=== PATIENT | female | born 1990 | race African-American/Black ===

== ENCOUNTER 2021-07-14 08:31 | Observation (INO) ==
[2021-07-14] MEDS ORDERED: BUTORPHANOL 2 MG/ML VIAL IV PRN (08:51)
[2021-07-14] MEDS ORDERED: ONDANSETRON 4 MG/2 ML VIAL IV PRN (08:51)
[2021-07-14] MEDS ORDERED: BENZOCAINE 20%/MENTHOL 0.5% SPRAY 56 GM CAN TOP PRN (08:53)
[2021-07-14] MEDS ORDERED: ACETAMINOPHEN 325 MG TABLET PO PRN (08:53)
[2021-07-14] MEDS ORDERED: RHO(D) IMMUNE GLOBULIN 300 MCG SYRINGE IM ONE ×2 (08:53→09:30)
[2021-07-14] MEDS ORDERED: OXYTOCIN/LR 20 UNIT/1,000 ML BAG IV PRN (08:53)
[2021-07-14] MEDS ORDERED: oxyCODONE/ACETAMINOPHEN 5-325 MG TABLET PO PRN (08:53)
[2021-07-14] MEDS ORDERED: BISACODYL 10 MG SUPP RECTAL PRN (08:53)
[2021-07-14 09:12] LABS: Bilirubin,Urine Negative (Negative); Blood, Urine Negative (Negative); Glucose,Urine (UA) Negative (Negative); Ketones,Urine 80 mg/dL (Negative); Mucus,Urine Moderate /LPF (Occasional); Nitrite,Urine Negative (Negative); Protein,Urine 30 MG/DL; RBC,Urine 1 /HPF (0-4); Squamous Epithelial Cell,Urine Occasional /HPF (0-10); Urine Appearance CLEAR (Clear); Urine Color Yellow (Yellow); Urine Urobilinogen < 2.0 EU/DL (<2.0)
[2021-07-14 09:43] LABS: Basophils % 0.1 % (0.0-0.8); Hematocrit 28.8 VOL% (35.7-47.0); Hemoglobin 9.8 GM/DL (12.0-16.0); Immature Granulocytes % 0.6 %; Immature Granulocytes Absolute 0.09 #; Lymphocytes # 0.5 10*3/uL (1.4-4.0); Lymphocytes % 3.3 % (21.3-54.2); Mean Corpuscular Volume 88.6 FL (87-102); Mean Platelet Volume 10.7 FL (9.6-12.0); Monocytes % 5.1 % (1.7-12.7); Neutrophils % 90.9 % (38.7-73.9); Platelet Count 146 T/CUMM (130-400); Red Blood Count 3.25 MC/CUMM (3.8-5.5); Red Cell Distribution Width 13.3 % (9.3-17.3)
[2021-07-14 10:10] LABS: Anisocytosis 1+; Band Neutrophils 24 % (0-10); Lymphocytes 1 % (20-55); Platelet Estimate Adequate; Segmented Neutrophils 68 % (50-85); Total Cells Counted 100
[2021-07-14 10:15] LABS: Albumin 2.5 G/DL (3.4-5.0); Bilirubin,Total 0.4 MG/DL (0.20-1.00); Calcium 8.6 MG/DL (8.5-10.1); Osmolality,Calculated 262.5 MOS/KG (273-304); Potassium 3.2 MMOL/L (3.5-5.1); Total Protein 6.8 G/DL (6.4-8.2)
[2021-07-14 10:39] LABS: Barbiturates Screen,Urine Negative (Negative); Benzodiazepines Screen,Urine Negative (Negative); Cannabinoid Screen,Urine Positive (Negative); Opiate Screen,Urine Positive (Negative); Phencyclidine Screen,Urine Negative (Negative)
[2021-07-14] MEDS: oxyCODONE/ACETAMINOPHEN 5-325 MG TABLET PO PRN ×2 (11:49→22:13)
[2021-07-14] MEDS: IBUPROFEN 800 MG TABLET PO PRN ×2 (11:49→22:13)
[2021-07-14] MEDS: DOCUSATE SODIUM 100 MG CAPSULE PO SCH ×2 (13:27→22:06)
[2021-07-14] MEDS ORDERED: OXYTOCIN/LR 20 UNIT/1,000 ML BAG IV ONE (13:28)
[2021-07-14] MEDS ORDERED: POTASSIUM CHLORIDE 20 MEQ TABLET PO SCH (21:00)
[2021-07-14] MEDS: FERROUS SULFATE 325 MG TABLET PO SCH (22:06)
[2021-07-15] MEDS ORDERED: hydrOXYzine HCL 25 MG/1 ML VIAL IM ONE (02:20)
[2021-07-15 06:01] LABS: Basophils % 0.2 % (0.0-0.8); Eosinophils # 0.1 10*3/uL (0.0-0.87); Hematocrit 25.5 VOL% (35.7-47.0); Hemoglobin 8.7 GM/DL (12.0-16.0); Immature Granulocytes % 0.3 %; Immature Granulocytes Absolute 0.03 #; Lymphocytes # 0.8 10*3/uL (1.4-4.0); Lymphocytes % 9.3 % (21.3-54.2); Mean Corpuscular HGB Conc 34.1 GM/DL (32-36); Mean Corpuscular Volume 88.2 FL (87-102); Monocytes % 5.8 % (1.7-12.7); Neutrophils % 83.4 % (38.7-73.9); Platelet Count 126 T/CUMM (130-400); Red Blood Count 2.89 MC/CUMM (3.8-5.5); Red Cell Distribution Width 13.5 % (9.3-17.3); White Blood Count 8.8 T/CUMM (4-12)
[2021-07-15 06:15] LABS: Calcium 8.7 MG/DL (8.5-10.1); Osmolality,Calculated 272.7 MOS/KG (273-304); Potassium 3.8 MMOL/L (3.5-5.1)
[2021-07-15] MEDS: DOCUSATE SODIUM 100 MG CAPSULE PO SCH ×3 (07:56→21:41)
[2021-07-15] MEDS: FERROUS SULFATE 325 MG TABLET PO SCH ×3 (07:57→21:41)
[2021-07-15] MEDS: IBUPROFEN 800 MG TABLET PO PRN ×2 (07:57→14:29)
[2021-07-15] MEDS ORDERED: miSOPROStoL 200 MCG TABLET VAG ONE (13:58)
[2021-07-15] MEDS ORDERED: oxyCODONE/ACETAMINOPHEN 5-325 MG TABLET PO PRN (14:01)
[2021-07-15] MEDS: SERTRALINE 50 MG TABLET PO SCH (14:29)
[2021-07-15] MEDS ORDERED: RHO(D) IMMUNE GLOBULIN 300 MCG SYRINGE IM ONE (14:30)
[2021-07-15] MEDS: oxyCODONE/ACETAMINOPHEN 5-325 MG TABLET PO PRN ×2 (14:30→21:43)
[2021-07-15] MEDS: LACTATED RINGERS 1,000 ML IV SCH (17:04)
[2021-07-16] MEDS: LACTATED RINGERS 1,000 ML IV SCH ×2 (01:13→09:02)
[2021-07-16] MEDS: DOCUSATE SODIUM 100 MG CAPSULE PO SCH (08:46)
[2021-07-16] MEDS: FERROUS SULFATE 325 MG TABLET PO SCH (08:46)
[2021-07-16] MEDS: IBUPROFEN 800 MG TABLET PO PRN (08:50)
[2021-07-16] MEDS: SERTRALINE 50 MG TABLET PO SCH (08:51)
[2021-07-16 13:55] VITALS: BP 118/64
== END 2021-07-16 15:40 | disposition home or self-care (01) ==
LOC: INTOOBSV 08:31 → N.LD 08:31 → N.OB 11:39
PROVIDERS: ADMIT Obstetrics & Gynecology; ATTEND Obstetrics & Gynecology